=== PATIENT | female | born 1975 | race Caucasian/White ===

== ENCOUNTER → 2016-06-12 | Outpatient (CLI) | payer BC ==
[~2016-06-12] MED LIST: CELEBREX 200MG200 MG PO; KLONOPIN 0.5MG0.5 MG PO; VIIBRYD20 MG PO; VIVELLE-DO0.1 MG/24 TD
== END ==
LOC: BHSO 10:15
DX: F31.81 Bipolar II disorder (principal)

== ENCOUNTER → 2016-07-10 | Outpatient (CLI) | payer BC | LOC: BHSO 10:21 | DX: F31.81 Bipolar II disorder (principal) ==

== ENCOUNTER → 2016-08-13 | Outpatient (CLI) | payer BC | LOC: BHSO 10:26 | DX: F31.81 Bipolar II disorder (principal) ==

== ENCOUNTER → 2016-10-07 | Outpatient (CLI) | payer BC | LOC: MC.RAD 14:15 | DX: Z90.13 Acquired absence of bilateral breasts and nipples (principal) ==

== ENCOUNTER → 2016-10-09 | Outpatient (CLI) | payer BC | LOC: BHSO 10:23 | DX: F33.42 Major depressive disorder, recurrent, in full remission (principal) ==

== ENCOUNTER → 2017-01-08 | Outpatient (CLI) | payer BC | LOC: BHSO 10:24 | DX: F31.81 Bipolar II disorder (principal) ==

== ENCOUNTER → 2017-03-05 | Outpatient (CLI) | payer BC | LOC: BHSO 10:26 | DX: F33.1 Major depressive disorder, recurrent, moderate (principal) ==

== ENCOUNTER → 2017-05-01 | Outpatient (CLI) | payer BC | LOC: BHSO 10:22 | DX: F41.1 Generalized anxiety disorder (principal) ==

== ENCOUNTER → 2017-09-29 | Outpatient (CLI) | payer BC | LOC: MC.RAD 14:04 | DX: Z12.31 Encounter for screening mammogram for malignant neoplasm of breast (principal); Z85.3 Personal history of malignant neoplasm of breast; Z90.13 Acquired absence of bilateral breasts and nipples ==

== ENCOUNTER → 2017-10-10 | Outpatient (CLI) | payer BC | LOC: COL.RAD 13:03 | DX: G44.82 Headache associated with sexual activity (principal) ==

== ENCOUNTER → 2017-10-23 | Outpatient (CLI) | payer BC ==
[~2017-10-23] MED LIST changes: +ESTRACE 1MG1 MG/TAB PO; +NORCO 325 MG-51 TAB PO
== END ==
LOC: BHSO 14:02
DX: F33.42 Major depressive disorder, recurrent, in full remission (principal)
CPT/HCPCS: G0463

== ENCOUNTER 2017-10-26 12:32 | Day surgery (SDC) | payer BC ==
[2017-10-26] VITALS (10 sets, daily range): BP systolic 107–147; BP diastolic 71–92; PULSE 54–78; TEMP 97.5–98.5
[~2017-10-26] VITALS: Ht 160 cm; Wt 57.2 kg
[~2017-10-26 12:32] MED LIST changes: -ESTRACE 1MG1 MG/TAB PO; -NORCO 325 MG-51 TAB PO
[2017-10-26 14:39] LABS: COLLECTION METHOD CLEAN CATCH
[2017-10-26 14:44] LABS: BASO % 0.4 % (0.0-2.0); EOS # 0.1 (0.0-0.7); EOS % 2.6 % (0-4.0); GRAN # 2.8 (1.4-6.5); GRAN % 52.7 % (42.2-75.2); HEMATOCRIT 35.7 % (37.0-47.0); HEMOGLOBIN 11.3 g/dl (12.5-16.0); LYMPH # 1.9 (1.2-3.4); LYMPH % 35.9 % (20.0-51.0); MEAN CELL VOLUME 85 fl (80.0-100.0); MEAN CORPUSCULAR HEMOGLOBIN 27 pg (27.0-31.0); MEAN CORPUSCULAR HGB CONC 32 g/dl (33.0-37.0); MEAN PLATELET VOLUME 8.7 fl (7.4-10.4); MONO # 0.5 (0.1-0.6); MONO % 8.4 % (1.7-9.3); PLATELET COUNT 291 K/mm3 (130-400); RED BLOOD COUNT 4.22 M/mm3 (4.10-5.30); REDCELL DISTRIBUTION WIDTH-CV 13.3 % (11.5-14.5)
[2017-10-26 14:53] LABS: ALBUMIN 4.1 gm/dL (3.5-5.0); BILIRUBIN,TOTAL 0.7 mg/dL (0.0-1.0); CALCIUM 9.4 mg/dL (8.4-10.2); CREATININE, serum 0.93 mg/dL (0.52-1.25); TOTAL PROTEIN 8.1 gm/dL (6.4-8.2)
[2017-10-26 14:57] LABS: MUCOUS Present /lpf; PH 5 (5-8); SQUAMOUS EPITHELIAL 0-2 /hpf; URINE APPEARANCE Clear; URINE BACTERIA None Seen /hpf; URINE BILIRUBIN Negative (NEGATIVE); URINE BLOOD Negative (NEGATIVE); URINE COLOR Yellow; URINE GLUCOSE Negative (NEGATIVE); URINE KETONE Negative (NEGATIVE); URINE LEUKOCYTE ESTERASE Negative (NEGATIVE); URINE NITRATE Negative (NEGATIVE); URINE PROTEIN(semi-quant) Negative (NEGATIVE); URINE RBC None Seen /hpf; URINE UROBILINOGEN Negative (NEGATIVE)
[2017-10-26 14:59] LABS: C-REACTIVE PROTEIN 2.5 mg/dL (0.0-0.9)
[2017-10-26] MEDS ORDERED: ESTRACE 1MG1 MG/TAB PO (22:57)
[2017-10-26] MEDS ORDERED: VIIBRYD20 MG PO (22:59)
[2017-10-27 05:00] VITALS: BP 101/55; PULSE 51; TEMP 98.1
[2017-10-27 07:14] VITALS: BP 113/69; PULSE 56; TEMP 97.9
[2017-10-27 11:39] VITALS: BP 106/57; PULSE 66; TEMP 97.9
[2017-10-27] MEDS ORDERED: NORCO 325 MG-51 TAB PO (12:45)
== END 2017-10-27 14:10 | disposition home or self-care (01) ==
LOC: COL.ER 12:32 → SURG 17:43 → SDCO 17:43 → COL.ER 17:47 → SURG 17:47 → SDCO 10-27 14:10
PROVIDERS: Emergency Medicine
DX: K35.3 Acute appendicitis with localized peritonitis (principal); M19.90 Unspecified osteoarthritis, unspecified site; F32.9 Major depressive disorder, single episode, unspecified; Z90.710 Acquired absence of both cervix and uterus; Z90.13 Acquired absence of bilateral breasts and nipples
CPT/HCPCS: OP; J1100; J1200; J1885; J2405; J2550; J2704; J3010; J7030; J7120; Q9967

== ENCOUNTER → 2018-05-06 | Outpatient (CLI) | payer BC ==
[~2018-05-06] MED LIST changes: +ESTRACE 1MG1 MG/TAB PO; +NORCO 325 MG-51 TAB PO
== END ==
LOC: BHSO 09:20
DX: F41.1 Generalized anxiety disorder (principal)
CPT/HCPCS: G0463

== ENCOUNTER → 2018-10-27 | Outpatient (CLI) | payer BC | LOC: BHSO 10:59 | DX: F33.41 Major depressive disorder, recurrent, in partial remission (principal) | CPT/HCPCS: G0463 ==

== ENCOUNTER → 2019-01-22 | Outpatient (CLI) | payer BC | LOC: MC.RAD 13:13 | DX: N63.10 Unspecified lump in the right breast, unspecified quadrant (principal) ==

== ENCOUNTER → 2019-01-25 | Outpatient (CLI) | payer BC | LOC: COL.RAD 10:35 | DX: K62.89 Other specified diseases of anus and rectum (principal); R19.7 Diarrhea, unspecified | CPT/HCPCS: Q9967 ==

== ENCOUNTER → 2019-04-19 | Outpatient (CLI) | payer BC | LOC: BHSO 10:22 | DX: F33.42 Major depressive disorder, recurrent, in full remission (principal) | CPT/HCPCS: G0463 ==

== ENCOUNTER → 2019-12-07 | Outpatient (CLI) | payer BC | LOC: ZCOL.LAB 14:38 | DX: Z01.818 Encounter for other preprocedural examination (principal); Z20.828 Contact with and (suspected) exposure to other viral communicable diseases ==

== ENCOUNTER → 2021-08-28 | Outpatient (CLI) | payer BC | LOC: COL.RAD 08-24 07:30 | DX: R07.9 Chest pain, unspecified (principal) | CPT/HCPCS: Q9967 ==

== ENCOUNTER 2021-12-10 21:11 | Emergency (ER) | payer BC ==
[~2021-12-10] VITALS: Ht 160 cm; Wt 54.5 kg
[2021-12-10 21:23] VITALS: TEMP 97.8
[2021-12-10] MEDS ORDERED: NORCO 325 MG-51 TAB PO (23:09)
[2021-12-10] MEDS ORDERED: ZOFRAN ODT4 MG PO (23:20)
[2021-12-10 23:25] VITALS: BP 134/85; PULSE 64
== END 2021-12-10 23:25 | disposition home or self-care (01) ==
LOC: COL.ER 21:11
DX: S02.611A Fracture of condylar process of right mandible, initial encounter for closed fracture (principal); S01.81XA Laceration without foreign body of other part of head, initial encounter; S60.512A Abrasion of left hand, initial encounter; S60.511A Abrasion of right hand, initial encounter; S80.212A Abrasion, left knee, initial encounter; S80.211A Abrasion, right knee, initial encounter; W01.198A Fall on same level from slipping, tripping and stumbling with subsequent striking against other object, initial encounter
CPT/HCPCS: J2270; J2405